=== PATIENT | male | born 1950 | race Caucasian/White ===

== ENCOUNTER 2017-12-28 10:49 | Inpatient (IN) ==
[2017-12-28] MEDS ORDERED: CeFAZolin Syr 2,000MG/20 ML 2,000 MG/20 ML SYRINGE IVPB ONE (11:08)
[2017-12-28] MEDS ORDERED: Ringers Solution, Lactated 1,000 ML IVC SCH ×3 (11:15→16:21)
--- NOTE | 2017-12-28 11:43 | History & Physical Report ---
Date of Encounter: 12/28/17 Time of Encounter: 11:42 24 Hour HP Update - Instructions Instructions: If the History and Physical is less than 30 days old and was completed prior to A.M. admission and or procedure and has NOT been updated on calendar day of procedure please complete this update prior to performing procedure. - Update Patient reports changes in Medical Condition: No Changes in examination, assessment, or condition: No Changes in Medication: No Preop tests/diagnostics Reviewed: Yes Surgery Remains Indicated: Yes Consent for Planned Operative Procedure(s) Verified: Yes - Pre-Operative Checklist Preoperative Checklist Indicated: No Prophylactic Antibiotic Ordered: Yes Is VTE Prophylaxis Indicated?: Yes
[2017-12-28] MEDS ORDERED: Famotidine 20 MG/2 ML VIAL IVP ONE (11:49)
[2017-12-28] MEDS ORDERED: Pregabalin 75 MG CAPSULE PO ONE (11:49)
[2017-12-28] MEDS ORDERED: *HR* Succinylcholine 200 MG/10 ML VIAL IVP ONE (12:40)
[2017-12-28] MEDS ORDERED: *HR* FentaNYL (PF) 100 MCG/2 ML VIAL ONE (12:40)
[2017-12-28] MEDS ORDERED: Lidocaine -MPF 2% 2 ML VIAL ONE (12:40)
[2017-12-28] MEDS ORDERED: Dexamethasone 4 MG/ML VIAL ONE (12:40)
[2017-12-28] MEDS ORDERED: Ondansetron 4 MG/2 ML VIAL ONE (12:40)
[2017-12-28] MEDS ORDERED: *HR* Midazolam HCl 2 MG/2 ML VIAL ONE (12:41)
[2017-12-28] MEDS ORDERED: *HR* Propofol 200 MG/20 ML VIAL IVP ONE (12:41)
[2017-12-28] MEDS ORDERED: Tetracaine/PF 20 MG/2 ML AMPUL ONE (12:42)
[2017-12-28] MEDS ORDERED: ROPIVACAINE HCL/PF 0.5% 30 ML VIAL ONE (12:42)
--- NOTE | 2017-12-28 12:44 | Anesthesia Evaluation PreOp ---
Date of Encounter: 12/28/17 Time of Encounter: 12:00 - Past History Planned Operation: Left TSR Cardiac History: Denies any Significant Hx Pulmonary History: Denies Any Significant HX POWDERMAN History: Denies Any Significant HX Other Medical History: Other (Arthritis) Alcohol Use: none Drug use: none Medications and Allergies OxyCODONE Immed Rel [Roxicodone 5 MG] 5 mg PO Q6HR PRN 7 Days #28 tablet [Rx] Albuterol Sulfate [Ventolin Hfa] 1 - 2 puff IH Q4-6H PRN 12/28/17 [History] Ibuprofen [Motrin Ib] 200 mg PO Q8H PRN 12/28/17 [History] Multivitamin [One Daily Multivitamin] 1 tab PO DAILY 12/28/17 [History] 3 Allergy/AdvReac Type Severity Reaction Status Date / Time clarithromycin [From Biaxin] Allergy Itching Verified 12/28/17 12:21 Tetracyclines Allergy Itching Verified 12/28/17 12:21 - Meds/Allergy Pre-op Review Medications Reviewed: Yes Allergies Reviewed: Yes Beta Blockers on Current Med List: No Anesthesia Exam O2 Sat Height 1.83 m Height 1.83 m Height 1.83 m Weight 88.451 kg Weight 88.451 kg Weight 88.451 kg O2 Sat by Pulse Oximetry 99 O2 Sat by Pulse Oximetry 99 Vital Signs Temp Pulse Resp BP Pulse Ox 98.0 F 76 18 156/94 99 12/28/17 11:09 12/28/17 11:09 12/28/17 11:09 12/28/17 11:09 12/28/17 11:09 Height: 6'0 Weight: 195 lbs NPO (# of Hours): MN Pain Scale: 0 - HEENT Pupil (Motor): Pupils equal, EOMI Mallampati: II Teeth: Normal Oral Opening: Greater than 3 - POWDERMAN LOC: Oriented POWDERMAN Motor: Normal RUE, Normal LUE, Normal RLE, Normal LLE, Normal Face POWDERMAN Sensory: Normal: RUE, LUE, RLE, LLE, Face - Cardiac Rhythm: Regular Murmur: None JVD: No Carotid Bruit: No - Pulmonary Breath Sounds: bilateral Clear Respiratory Effort: Symmetrical Anesthesia Assess/Plan ASA Score: 2 Modified [place] Scale for Level of Consciousness: Cooperative, oriented, and tranquil Anesthetic Plan: General, Regional Monitoring Plan: Standard Monitors Recovery Plan: PACU (Discussed GA and RA, agrees to proceed)
[2017-12-28] MEDS ORDERED: Lidocaine -MPF 4% 5 ML AMPUL ONE (12:49)
[2017-12-28] MEDS ORDERED: Bupivacaine/Clonidine Syringe 1 EACH SYRINGE ONE (12:55)
--- NOTE | 2017-12-28 14:13 | Anesthesia Procedures ---
Date of Encounter: 12/28/17 Time of Encounter: 14:50 Procedures: Anesthesia - Nerve Block Procedure Date: 12/28/17 Time: 14:50 Allergies/Adv Reactions: bactrim/tetracycline Pre-op Diagnosis: left shoulder replacement Surgical Procedure: left shoulder arthritis Checklist: Correct Patient Identifier, Correct procedure, History checked Correct side: Left Blood Thinner: No Monitor Applied: EKG, BP, Pulse Oximetry Supplemental Oxygen via Nasal Cannula (L/min): 2 Sedation: Versed (mg): 2 Sedation: Fentanyl (mcg): 100 Indication: Post Op Analgesia Pre-op Neuro Deficits: No Block Type: Supraclavicular (icb/scp) Catheter placed: No Sterile Technique: Yes Ultrasound used: Yes Anatomy identified: Yes Visual spread of Local: Yes Neuro Stimulation: Yes Nerve Stimulator Range: 0.2 - 0.4 mA Blood on Needle Aspiration: No Smooth Injection of Local: Yes Pain with Injection of Local: No Prep: Chlorhexadine Needle: 22 x 50 mm Stimuplex Local: 0.25% Bupivicaine w/Clonidine 20 mcg/cc, Ropivacaine (0.5% ropi with decadron +tetracaine 1% ) Volume (cc): 30 Number of Attempts: 1 Complications: None/effective block Vitals: Vital Signs - Last 8 Hours Temp Pulse Resp BP Pulse Ox 12/28/17 13:41 80 12 153/104 98 12/28/17 13:26 70 13 156/98 95 12/28/17 13:13 82 16 166/105 99 12/28/17 11:11 98.0 F 76 18 156/94 99 12/28/17 11:09 98.0 F 76 18 156/94 99 Intake and Output 12/27/17 12/28/17 12/28/17 23:59 07:59 15:59 Other: Weight 88.451 kg Patient Weight 12/28/17 23:59 Weight 88.451 kg Comments: per dr. emanuel request
[2017-12-28] MEDS ORDERED: Ondansetron 4 MG/2 ML VIAL IVP ONE (14:36)
[2017-12-28] MEDS ORDERED: *HR* OxyCODONE Immed Rel 5 MG TABLET PO PRN ×2 (14:36→16:21)
--- NOTE | 2017-12-28 14:39 | Orthopedic Operative Note ---
Date of procedure: 12/28/17 Pre-op diagnosis: Left shoulder cuff tear arthropathy Post-op diagnosis: same Procedure: Procedure: Total Shoulder Replacment Reverse, left Estimated blood loss: 100 cc Hardware: Metal and polyethylene replacement: Arthrex large glenoid baseplate, 2 4.5 screws. 1 6.5 screw, weight 2+4 glenosphere, 8 humeral stem, 3 poly insert Exam Under anesthesia: Full motion no instability Procedural Notes: Irreparable tear subscap supraspinatus. Operative procedure: The patient was brought to the operating room and placed on the operating room table. After general anesthesia was administered the operative shoulder was examined. Findings were noted. The patient was placed in the modified beachchair position. All pressure points were padded appropriately. And the head was stabilized in the neutral position. The operative extremity was prepped and draped in the sterile surgical fashion. The patient received IV antibiotics prior to skin incision. A standard deltopectoral approach was made to the operative shoulder. Incision was made to the skin and subcutaneous tissue,hemo stasis was obtained with Bovie cautery. Using careful blunt dissection the cephalic vein was identified and mobilized medially. The deltopectoral interval was developed and the clavipectoral fascia was incised. The subscap was torn and irreparable. The humerus was dislocated patient noted to have irreparable tear supraspinatus tendon, and the humeral cut was made along the anatomic neck. Anterior and posterior Bankart retractors were placed to expose the glenoid. The glenoid guide was seated and the centering hole was made. It was reamed with the appropriate reamer. The large baseplate was seated and secured with (2) 4.5 screws and one 6.5 screw. The baseplate was irrigated and dried and the 42+4 Glenosphere was seated and secured with the Dykes taper. The Dykes taper was tested and found to be secure the humerus was redislocated and prepared with the diaphyseal reamers, followed by a broaching process up to the appropriate size 8 in the patient's anatomic version. The metaphyseal reamer was then utilized. Trial reduction found the shoulder to be relocatable. Trial components were removed and the 8 stem was impacted in place in the patient's anatomic version. Trial reduction found the shoulder to be relocatable and stable with the appropriate 3. Trial component was removed and the real implant was seated and secured the shoulder was reduced. The shoulder had excellent motion and excellent stability and no evidence of dislocation. The deep tissue was irrigated with pulse irrigation. The PA close the shoulder. The deltopectoral interval was closed with a running #1 PDS suture, subcutaneous tissue was irrigated and closed with 0 PDS suture, the skin was closed with Dermabond. The patient was placed in a sterile dressing, abduction brace and extubated. The patient was then transferred to the recovery room in stable condition. Anesthesia: GETA Surgeon: Jose Guadalupe Luciano Was there an certified pathology assistant present: No Estimated blood loss (cc): 100 Condition: stable Disposition: PACU
[2017-12-28] MEDS: *HR* Labetalol 100 MG/20 ML MDV IVP PRN ×2 (15:18→15:26)
[2017-12-28] MEDS: *HR* Promethazine 25 MG/ML VIAL IVP PRN ×2 (15:29→15:38)
--- NOTE | 2017-12-28 15:39 | Discharge Summary ---
Orders not resulted at time of discharge: Pending orders 12/28/17 00:01 XR shoulder complete LT [XR] Routine 12/28/17 11:49 US anesthesia pain block [US] Routine 12/28/17 13:08 POC Hemoglobin [POC] Stat 12/28/17 14:43 Surgical Pathology [PTH] Routine 12/28/17 15:24 H/H [Hemoglobin and Hematocrit] [HEME] Stat Date of Encounter: 12/29/17 Time of Encounter: 11:00 - Discharge Diagnosis (1) Status post reverse total arthroplasty of left shoulder Priority: Primary Status: Acute Comments: PT/OT. NWB to affected upper extremity. Follow Shoulder Precautions x 6 weeks. Stay in brace during activity and at night. Remove brace during exercises. ICE and elevate extremity frequently throughout the day. Treatments: Opsite dressing, leave intact until first post-operative visit. If dressing becomes >50% saturated, contact office, remove dressing and place appropriate dressing in its place. Do not allow for dressing to get wet. Liu in place, plan to remove at post-operative day #14-16. (2) Rotator cuff arthropathy of left shoulder Priority: Primary Status: Acute - Hospital Course Hospital course: Mr. Walls is a 67 year old male, status post Left Total Shoulder Reverse ball and socket, with uneventful post-operative course. Patient in stable condition at discharge. Pain control: Adequate Participating in PT. All questions and concerns addressed. Educated on use of incentive spirometer, ambulation, and hydration. Patient educated on post-operative restrictions and care. - Time Spent with Patient Total time spent providing and/or coordinating discharge services: Less than 30 minutes - Discharge Medications Home Medications: OxyCODONE Immed Rel [Roxicodone 5 MG] 5 mg PO Q6HR PRN 7 Days #28 tablet [Rx] Albuterol Sulfate [Ventolin Hfa] 1 - 2 puff IH Q4-6H PRN 12/28/17 [History] Ibuprofen [Motrin Ib] 200 mg PO Q8H PRN 12/28/17 [History] Multivitamin [One Daily Multivitamin] 1 tab PO DAILY 12/28/17 [History] Allergies/Adverse Reactions: 3 Allergy/AdvReac Type Severity Reaction Status Date / Time clarithromycin [From Biaxin] Allergy Itching Verified 12/28/17 12:21 Tetracyclines Allergy Itching Verified 12/28/17 12:21 Date of admission: 12/28/17 Primary care physician: Castillo Norton - Patient Status Disposition: Home, Self-Care Condition: Good Functional capacity at discharge: independent ambulation Overall status at discharge: patient is back to baseline - Discharge Instructions Follow Up With: Neisha Saldivar PAC [[facility]] - 01/13/18 2:00 pm Jose Guadalupe Luciano MD [Partnered Physician] - 01/25/18 5:05 pm Hina Roberto PAC [[facility]] - 01/05/18 1:00 pm Additional Instructions: Discharge Instructions: Total Shoulder Please call [facility] ([phone]), your Primary Care Physician, or report to the Emergency Room if you have any of the following symptoms: Nausea, vomiting, fever greater that 101.5, swelling, chest pain, shortness of breath, increased pain/redness/drainage/odor for your incision site, numbness/ tingling, or any other concerning symptoms. ACTIVITY: Always keep your arm in the sling. Do not raise your arm away from your body. Do not use your arm to help with getting in or out of bed. No weight bearing permitted. Only perform those exercises given to you by your therapist. MEDICATIONS: Upon discharge resume your home medications. Take all the medications as prescribed. Take a stool softener if taking narcotic pain medications. Stool softeners are only effective if you drink enough fluids. Drink 6-8 glass of water or fluids a day, unless this is not allowed for another health problem. Despite using stool softeners, if you haven't had a bowel movement in 3 days, please switch to a gentle laxative. Gentle laxatives are sold over the counter. You should have a bowel movement within 24 hours, if not call the office. You will be discharged from the hospital with a prescription for pain medication. You are encouraged to decrease the use of narcotic pain medication as tolerated. Should you require a refill, please call the office. [facility] prescribes narcotic pain medication for only 4-6 weeks after surgery. If you require pain medication beyond this time period, you may be referred to your Primary Care Physician or to the Pain Clinic for further evaluation. Plan ahead for refills on pain medication as many narcotics either need to be picked up at the office or mailed. It is best to call 48-72 hours in advance of needing a prescription refill so you don't run out of medication. To help control the post-operative pain, you may take NSAIDs (Aleve,Advil, Motrin, Ibuprofen, Naprosyn) or Tylenol as prescribed on the bottle in addition to the pain medication. WOUND CARE: Leave the dressing on for 7-10 days. You may change the dressing if it becomes saturated greater than 50%. Do not get the dressing wet at anytime. Wash your hands with antibacterial soap, rinse and dry prior to any wound care. If you have liu the visiting nurse or rehab facility can remove the stapes 10-14 days after surgery and place steri-strips across the wound. Leave the steri-strips in place until they fall off on their own. You may let water from the shower run on top of the steri-strips. If you do not have a visiting nurse or rehab facility, you will need to return to the office at 10-14 days for the liu to be removed. If you have itching or redness around the dressing call the office. FOLLOW-UP: Please follow up with your surgeon in the orthopedic clinic, as scheduled
--- NOTE | 2017-12-28 15:44 | Anesthesia Evaluation Post Op ---
Date of Encounter: 12/28/17 Time of Encounter: 15:40 - Vital Signs Vital Signs: Vital Signs/O2 Sat, Most Current Temp Pulse Resp BP Pulse Ox 97.3 F L 71 16 140/93 94 12/28/17 15:35 12/28/17 15:35 12/28/17 15:35 12/28/17 15:35 12/28/17 15:35 - Lungs Lungs: Clear Ascult./Percussion - Airway Airway: Non-obstructed - Cardiovascular Regular Rate, Baseline Rhythm - Mental Status Mental Status: Alert & Oriented, Answers Appropriately - Pain Pain Scale: 0 Pain Scale used: Numeric (1 - 10) - Nausea Vomiting Nausea Vomiting: Responds to treatment with IV Meds - Hydration Hydration: Tolerates oral liquids, Ice chips - Discharge PostOp Status: Transfer Patient to floor
[2017-12-28 15:49] LABS: Hematocrit 40.7 % (37.5-50.1); Hemoglobin 13.7 g/dL (12.9-16.9)
[2017-12-28] MEDS ORDERED: Naloxone 0.4 MG/ML INJ IVP PRN (16:21)
[2017-12-28] MEDS ORDERED: Temazepam 15 MG CAPSULE PO PRN (16:21)
[2017-12-28] MEDS ORDERED: Ondansetron 4 MG/2 ML VIAL IVP PRN (16:21)
[2017-12-28] MEDS ORDERED: MOM Conc 10 ML UD.LIQ PO PRN (16:21)
[2017-12-28] MEDS ORDERED: Sennosides 8.6 MG TABLET PO PRN (16:21)
[2017-12-28] MEDS ORDERED: *HR* OxyCODONE/APAP 5/325 TABLET PO PRN (16:21)
[2017-12-28] MEDS ORDERED: *HR* Enoxaparin 30 MG/0.3 ML SYRINGE SQ SCH (18:00)
[2017-12-28] MEDS: *HR* Enoxaparin 30 MG/0.3 ML SYRINGE SQ SCH (20:47)
[2017-12-29 01:49] LABS: Hematocrit 41.6 % (37.5-50.1); Hemoglobin 14.2 g/dL (12.9-16.9)
[2017-12-29] MEDS: *HR* Enoxaparin 30 MG/0.3 ML SYRINGE SQ SCH (05:55)
[2017-12-29 06:23] VITALS: BP 121/76
--- NOTE | 2017-12-29 08:10 | Orthopedics Progress Note ---
Date of Encounter: 12/29/17 Time of Encounter: 08:10 Subjective Interval history: Patient was seen this morning doing well without complaints. Afebrile vital signs stable. Operative extremity: Neurovascularly intact Dressing clean dry and intact Calves nontender Assessment and plan: Continue with postoperative care Hematocrit 41, discharged today Objective Vital signs: Vital Signs Temp Pulse Resp BP Pulse Ox 12/29/17 06:22 98.6 F 74 17 121/76 95 12/29/17 04:08 97.8 F 70 14 112/72 96 12/28/17 23:08 97.7 F 74 14 108/72 95 12/28/17 20:39 76 16 113/77 95 12/28/17 17:30 81 16 128/82 97 12/28/17 16:15 97.8 F 70 16 156/52 95 12/28/17 15:50 97.0 F L 71 14 138/90 98 12/28/17 15:35 97.3 F L 71 16 140/93 94 12/28/17 15:25 71 16 143/93 95 12/28/17 15:15 76 16 142/100 98 12/28/17 15:05 97.4 F L 73 16 142/96 95 12/28/17 13:41 80 12 153/104 98 12/28/17 13:26 70 13 156/98 95 12/28/17 13:13 82 16 166/105 99 12/28/17 11:11 98.0 F 76 18 156/94 99 12/28/17 11:09 98.0 F 76 18 156/94 99 Intake and Output 12/28/17 12/29/17 12/29/17 23:59 07:59 15:59 Intake Total 100 / 100 100 / 100 Output Total 1800 / 1800 Balance 100 / 100 -1700 / -1700 Intake: IV Fluids 100 / 100 100 / 100 Ancef 2,000 MG In 0.9 % Sodium 100 / 100 100 / 100 Chloride 100 ML @ 200 mls/hr IVPB Q8H [facility] Rx#:[id number] Output: Urine 1800 / 1800 Other: # Voids 3 - Labs CBC & BMP: 12/29/17 01:13 - VTE Documentation of Mechanical Device: Venous foot pump, device Consult Discharge Plan - Plan Referrals: Castillo Norton DO [Primary Care Provider] -
[2017-12-29] MEDS ORDERED: Multivit/Ca/Min/Fe/FA 1 TAB TABLET PO SCH (09:00)
== END 2017-12-29 12:15 | disposition home or self-care (01) | DRG 483 ==
LOC: SAMDAY 10:49 → 3NENU 15:43
PROVIDERS: ADMIT Orthopaedic Surgery; ATTEND Orthopaedic Surgery